=== PATIENT | female | born 1945 | race Caucasian/White ===

== ENCOUNTER 2019-08-29 15:22 | Inpatient (IN) ==
[2019-08-29] MEDS ORDERED: ZOFRAN IV ONE (15:56)
[2019-08-29] MEDS ORDERED: MORPHINE IV ONE (15:56)
--- NOTE | 2019-08-29 16:09 | PROVIDER DOCUMENTATION ---
HPI-Abdominal Pain/GI Problem - General Chief Complaint: General Adult Stated Complaint: NOT FEELING WELL Time Seen by Provider: 08/29/19 15:48 Source: patient Allergies/Adverse Reactions: Patient Allergies Allergy/AdvReac Type Severity Reaction Status Date / Time No Known Allergies Allergy Verified 08/29/19 15:54 Home Medications: Home Medication List Medication Instructions Recorded Confirmed Last Taken Type Biotin 5,000 mcg PO QAM 08/25/19 08/29/19 08/25/19 08:00 History Cetirizine [Zyrtec] 10 mg PO QHS 08/25/19 08/29/19 08/25/19 21:00 History Citalopram [Celexa] 20 mg PO QHS 08/25/19 08/29/19 08/25/19 21:00 History Famotidine 40 mg PO QHS 08/25/19 08/29/19 08/25/19 21:00 History Metoclopramide [Reglan] 10 mg PO DIRECTED 08/25/19 08/29/19 08/25/19 21:00 History Multivit/Iron/Folic Acid/Hb179 1 ea PO QAM 08/25/19 08/29/19 Unknown History [Womens Multivit Hi Potency Tab] Pantoprazole [Protonix] 40 mg PO BID 08/25/19 08/29/19 08/25/19 21:00 History Temazepam 15 mg PO QHS 08/25/19 08/29/19 08/25/19 21:00 History Zinc 50 mg PO BID 08/25/19 08/29/19 Unknown History Calcium Citrate/Vitamin D 1 tab PO BID 08/29/19 08/29/19 Unknown History [Citracal + D] Irbesartan 1 tab PO DAILY 08/29/19 08/29/19 Unknown History Lipase/Protease/Amylase [Creon Dr 2 cap PO TID 08/29/19 08/29/19 Unknown History 12,000 Units Capsule] Loperamide [Imodium] 1 cap PO DIRECTED PRN 08/29/19 08/29/19 Unknown History Ondansetron HCl [Zofran] 1 - 2 tab PO DIRECTED 08/29/19 08/29/19 Unknown History Promethazine [Phenergan] 1 tab PO DIRECTED PRN 08/29/19 08/29/19 Unknown History Vitamin B Complex 1 tab PO DAILY 08/29/19 08/29/19 Unknown History - History of Present Illness-ABD Nature of Presenting Problems: 73 yof with pancreatic cancer being treated with chemotherapy (Dr. Gunter), s/p ERCP(Dr. Whittington) on Saturday presents with abdominal pain, n/v presents at the advice of television agent GI. She denies fever, chills, CP, SOB. Pain Radiation: reports: epigastric Quality of Pain: reports: aching, cramping Severity in ED: reports: severe Onset/Duration: reports: 2 days ago Timing: reports: still present Activities at Onset: reports: none Exposure to sick contacts?: No Modifying Factors: improves with: nothing Associated Symptoms: reports: nausea, vomiting Last BM: 2 days ago Dark Stools Present?: reports: none noticed Rectal Bleeding: reports: none Rectal Pain: reports: none Emesis Description: reports: clear (yellow) Bruising or Bleeding Gums?: No Similar Symptoms Previously?: No Recently seen or treated by another doctor?: Yes (GI for ERCP) Review of Systems - Adult - REVIEW OF SYSTEMS - ADULT Constitutional: reports: no symptoms reported. denies: see HPI, chills, fever, fatique, night sweats, weight gain, weight loss, other Eyes: reports: no symptoms reported. denies: see HPI, discharge, dry eyes, decreased vision, blurred vision, double vision, eye pain, redness, other Ears, Nose, Mouth & Throat: reports: no symptoms reported. denies: see HPI, ear discharge, ear pain, hearing loss, tinnitus, epistaxis, sinus problem, nose pain, loose teeth, mouth/dental pain, mouth swelling, hoarseness, throat pain, throat swelling, other Cardiovascular: reports: no symptoms reported. denies: see HPI, chest pain, edema, heart murmur, irregular heart rate, orthopnea, palpitations, poor circulation, PND, syncope, other Respiratory: reports: no symptoms reported. denies: see HPI, chronic cough, cough, dyspnea on exertion, excessive sputum production, hemoptysis, pleurisy, shortness of breath, wheezing, other Gastrointestinal: reports: see HPI, abdominal pain, diarrhea, nausea, vomiting Genitourinary: reports: no symptoms reported. denies: see HPI, dysuria, discharge, frequency, flank pain, frequent UTI's, hematuria, hesitency, incontinence, urinary retention, urgency, other Musculoskeletal: reports: no symptoms reported. denies: see HPI, bone pain, back pain, frequent leg cramps, joint pain, joint swelling, muscle aches, muscle weakness, neck pain, other Integumentary: reports: no symptoms reported. denies: see HPI, hives, hair loss, itching, mole changes, nail changes, rash, skin sores/ulcer, skin thickening, other Neurological: reports: no symptoms reported. denies: see HPI, ataxia, di zziness/vertigo, headache/migraines, loss of balance, numbness, paresthesia, seizure, slurred speech, syncope, tremors, other Psychiatric: reports: no symptoms reported. denies: see HPI, anxiety, anti- depressant use, alcohol/drug dependence, depression, emotional problems, insomnia, panic attacks, suicidal thoughts, other Endocrine: reports: no symptoms reported. denies: see HPI, change in skin pigment, excessive sweating, goiter, cold intolerance, heat intolerance, increased hunger, increased thirst, polyuria, other Hematologic/Lymphatic: reports: no symptoms reported. denies: see HPI, blood clots, easy bruising, low blood count, lymphedema, prolonged bleeding, swollen lymph nodes, transfusions, other Allergic/Immunologic: reports: no symptoms reported. denies: see HPI, allergic reactions, allergic rhinitis, asthma, eczema, food allergy, frequent infections, hay fever, hives, positive PPD, urticaria, other Past History - Adult - PAST MEDICAL HISTORY-ADULT Review of Records: reports: Nursing Assessment Review, Social history reviewed & non-contributory. Physical Exam-General - PHYSICAL EXAM-ADULT Initial Vital Signs Reviewed: Yes - CONSTITUTIONAL General Appearance: alert, mild distress (due to pain) - EYES Eyes: PERRL/EOMI, pink conjunctivae - HEAD, EARS, NOSE, MOUTH & THROAT HENMT: normocephalic/atraumatic, moist mucous membranes, normal ENT inspection - NECK Neck: non-tender, full range of motion, supple - RESPIRATORY Respiratory: chest non-tender, lungs clear, normal breath sounds, no pleuratic chest pain, no respiratory distress, no accessory muscle use - CARDIOVASCULAR Cardiovascular: normal peripheral pulses, regular rate, rhythm, no edema, no gallop, no JVD, no murmur - GASTROINTESTINAL (ABDOMEN) Abdominal Exam: normal bowel sounds, soft, tenderness (epgastric) - LYMPHATIC Lymphatic: no adenopathy - MUSCULOSKELETAL Back Exam: normal inspection, no CVA tenderness, no vertebral tenderness Extremity: normal range of motion, non-tender Peripheral Pulses: radial (R): 2+, radial (L): 2+ - SKIN Integumentary: normal turgor, warm/dry. negative: normal color (pale) - NEUROLOGIC Neurologic: grossly normal - PSYCHIATRIC Psych/Mental Status: normal mood/affect, oriented x 3 Progress - PLAN OF CARE/RESULTS Progress/Plan/Lab Results: Vital Signs - 8 hr 08/29/19 15:27 Temperature 97.6 F Pulse Rate 77 Respiratory Rate 18 Blood Pressure 162/82 O2 Sat by Pulse Oximetry 96 Orders Category Date Time Status Misc. NRSG Communication Order DIRECTED Care 08/29/19 15:55 Active AMYLASE [CHEM] Stat Lab 08/29/19 15:55 Ordered CBC WITH ELECTRONIC DIFF [HEME] Stat Lab 08/29/19 15:55 Uncollected COMPREHENSIVE METABOLIC PANEL [CHEM] Stat Lab 08/29/19 15:55 Uncollected LIPASE [CHEM] Stat Lab 08/29/19 15:55 Uncollected UA NIMS W/REFLEX CULT [URINALYSIS] Stat Lab 08/29/19 15:55 Uncollected Morphine Med 08/29/19 15:56 Discontinued 2 mg IV NOW ONE Ondansetron [Zofran] Med 08/29/19 15:56 Discontinued 4 mg IV NOW ONE Result Diagrams: 08/29/19 16:10 08/29/19 16:10 - CT/MRI 1 CT Study: Abdomen, Pelvis Impression: See EMR Report (EXAM: CT ABD/PELVIS W/IV CONT ONLY HISTORY: Pain TECHNIQUE: CT abdomen and pelvis with intravenous contrast, but without oral contrast. COMPARISON: 06/03/2019 FINDINGS: There is a common bile duct stent on the current exam. Mild pneumobilia in the left hepatic lobe. Interval decrease in the size of the hepatic masses. No splenomegaly. No increase in the size of the mass in the pancreatic head/uncinate process. The pancreatic duct is dilated on the current exam. Normal adrenal glands and kidneys. No hydronephrosis. Normal aorta. There is narrowing of the mid to distal superior mesenteric artery. The stomach and duodenum aren't distended. This is similar to the prior exam. There is stool throughout the colon. No bowel obstruction. No abscess. Urinary bladder is moderately distended and normal. Normal uterus. Trace fluid in the pelvis. IMPRESSION: 1.No enlargement of the pancreatic mass although the pancreatic duct is dilated on the current exam 2.Interval decrease in the size of the hepatic masses 3.Distended duodenum similar to the prior exam 4.Constipation 5.Trace fluid in the pelvis on the current exam This exam was performed using automated exposure control, adjustment of mA or kV according to patient size, and/or use of iterative reconstruction technique. Electronically signed by Memo Sen 08/29/2019 5:43 PM 08/29/19 1743 I nterpreting Physician: Memo Sen MD Dictated Date/Time: 08/29/19 173 cc: Paradise Bro; Koko Peck MD) Comparison with other Films: changes noted - CONSULTS/PCP/HOSPITALIST Notification #1 *Consult/PCP/Hospitalist*: DR. ARAUJO Time Discussed: 18:12 Consult Disposition: Admit (WILL SEE IN [facility] ER) Departure - Departure Date of Disposition Decision: 08/29/19 Time of Disposition Decision: 18:12 DIAGNOSIS: Nausea & vomiting, Abdominal pain, Pancreatic cancer, Hypokalemia Disposition: ADMITTED INPATIENT 09 Certified Medical Emergency: Emergent Condition: Stable Referrals and Follow-Ups: Koko Peck MD [Primary Care Provider] - - Critical Care Note This patient required my direct & personal management of CC.: No Attestation - Physician/ VIVEK Attestation Patient care was provided by Advanced Practice Provider:: Yes Advanced Practice Provider:: Paradise Bro Advanced Practice Provider documentation review:: The Mid-level provider documentation, treatment plan and medical decision making was reviewed by the physician who agrees with all treatment and medical decision making by the P. The physician spent face to face time with patient:: No Advanced Practice Provider documentation review:: Supervising physician onsite and consulted in the evaluation and care of this patient. The physician did not have a face to face encounter with the patient.
[2019-08-29 16:28] LABS: BASO# 0.01 X1000 (0.0-0.2); BASO% 0.2 % (0.0-0.8); EOS# 0.11 X1000 (0.0-0.7); EOS% 1.8 % (0.0-10.0); HEMATOCRIT 29.8 % (37.0-47.0); HEMOGLOBIN 9.5 g/dL (12.0-16.0); IMM GRAN# 0.02 X1000 (0.0-0.04); IMM GRAN% 0.3 % (0.0-0.5); LYMPH# 0.54 X1000 (1.2-3.4); MCH 31.3 PG (27-31); MCHC 31.9 g/dL (33-37); MONO# 1.17 X1000 (0.11-0.59); MONO% 19.4 % (1.7-9.3); MPV 9.2 FL (7.4-10.4); NEUT# 4.18 X1000 (1.4-6.5); NEUT% 69.3 % (42.2-75.2); PLT 154 X1000 (130-400); RBC 3.04 XMIL (4.2-5.4); RDW 17.4 % (11.5-14.5); WBC 6.03 X1000 (4.8-10.8)
[2019-08-29] MEDS ORDERED: NS 1,000 ML IV ONE ×2 (16:34→18:18)
[2019-08-29 16:47] LABS: AGAP 13; ALBUMIN 3.6 g/dL (3.5-5.0); ALKALINE PHOSPHATASE 681 U/L (32-104); BUN 16 mg/dL (8-22); CALCIUM 8.7 mg/dL (8.8-10.2); CHLORIDE 94 mmol/L (98-107); COSMO 269; CREATININE 0.6 mg/dL (0.5-0.9); ESTIMATED GFR > 60; GLUCOSE 121 mg/dL (70-104); GOT 179 U/L (10-30); GPT 316 U/L (10-36); LIPASE 196 U/L (13-60); POTASSIUM 3.2 mmol/L (3.5-5.1); SODIUM 133 mmol/L (136-145); TCO2 26 mmol/L (25-35); TOTAL PROTEIN 6.5 g/dL (6.3-8.3)
--- NOTE | 2019-08-29 17:46 | Diag Imaging Result Doc PS360 ---
EXAM: CT ABD/PELVIS W/IV CONT ONLY HISTORY: Pain TECHNIQUE: CT abdomen and pelvis with intravenous contrast, but without oral contrast. COMPARISON: 06/03/2019 FINDINGS: There is a common bile duct stent on the current exam. Mild pneumobilia in the left hepatic lobe. Interval decrease in the size of the hepatic masses. No splenomegaly. No increase in the size of the mass in the pancreatic head/uncinate process. The pancreatic duct is dilated on the current exam. Normal adrenal glands and kidneys. No hydronephrosis. Normal aorta. There is narrowing of the mid to distal superior mesenteric artery. The stomach and duodenum aren't distended. This is similar to the prior exam. There is stool throughout the colon. No bowel obstruction. No abscess. Urinary bladder is moderately distended and normal. Normal uterus. Trace fluid in the pelvis. IMPRESSION: 1.No enlargement of the pancreatic mass although the pancreatic duct is dilated on the current exam 2.Interval decrease in the size of the hepatic masses 3.Distended duodenum similar to the prior exam 4.Constipation 5.Trace fluid in the pelvis on the current exam This exam was performed using automated exposure control, adjustment of mA or kV according to patient size, and/or use of iterative reconstruction technique. Electronically signed by Memo Sen 08/29/2019 5:43 PM
[2019-08-29 18:10] LABS: URINE SOURCE CLEAN CATCH
[2019-08-29] MEDS: MORPHINE IV PRN ×2 (18:33→22:12)
[2019-08-29 18:38] LABS: BILIRUBIN URINE NEGATIVE (NEGATIVE); BLOOD URINE NEGATIVE (NEGATIVE); COLOR YELLOW; GLUCOSE URINE NEGATIVE (NEGATIVE); KETONE URINE NEGATIVE (NEGATIVE); LEUKOCYTES URINE NEGATIVE (NEGATIVE); NITRITE URINE NEGATIVE (NEGATIVE); PROTEIN URINE NEGATIVE (NEGATIVE); SP GRAVITY URINE 1.019; TURBIDITY URINE CLEAR (CLEAR); UROBILINOGEN URINE NORMAL (NORMAL)
[2019-08-29 18:58] LABS: UR EPITHELIAL CELLS <10 /HPF (<10); URINE BACTERIA NEGATIVE /HPF; URINE RBC <10 /HPF (<10); URINE WBC <10 /HPF (<10); URINE YEAST NONE SEEN
[2019-08-29 18:59] LABS: URINE CASTS NONE SEEN; URINE CRYSTALS NONE SEEN
[2019-08-29] MEDS ORDERED: DILAUDID IV PRN (19:27)
--- NOTE | 2019-08-29 20:45 | HISTORY AND PHYSICAL ---
CHIEF COMPLAINT: Upper abdominal pain, nausea, not eating, since metal stent was placed by Dr. Gregory on Saturday. HISTORY OF PRESENT ILLNESS: She is a 73-year-old pleasant white female patient of Dr. Peck who has been diagnosed with metastatic pancreatic cancer since last year. The patient has a port on the right side. The patient is receiving chemotherapy by Dr. Gunter. Last chemo was 10 days ago, approximately. She has persistently elevated LFTs, and as a result Dr. Brar placed a metal stent last Saturday. The patient was discharged as an outpatient. Since then, she has pain that is increasing in the abdomen and nausea, not eating anything. Apparently, she called Dr. Gunter and Dr. Greco. The patient was advised to go to the emergency room. Since the patient has a history of abdominal pain, the patient was transferred to [facility] for a better CT scan. The patient was evaluated by the nurse practitioner, and she was dehydrated, hypokalemic, with an elevated lipase. Basically, the patient was admitted to the hospital for possible pancreatitis. She needs some pain management, IV fluids. She appears to be running a low-grade fever. Need to closely watch for ascending cholangitis. CT scan of the abdomen and pelvis showed no enlargement of the pancreatic mass, although the pancreatic duct is dilated. Interval decrease in the size of hepatic masses, distended duodenum, constipation. A common bile duct stent was placed. As a result, a hospital admission was warranted. PAST MEDICAL HISTORY: Allergic rhinitis, acid reflux disease, reactive depression, metastatic pancreatic cancer, hypertension. PAST SURGICAL HISTORY: Thyroidectomy for thyroid nodule, laparoscopic surgery for endometriosis, Port-A-Cath on the right side of the chest. MEDICATIONS.: 1. Cetirizine 10 mg at bedtime. 2. Famotidine 40 mg daily. 3. Reglan as directed. 4. Protonix 40 b.i.d. 5. Zinc 50 mg b.i.d. 6. Celexa 20 mg at bedtime. 7. Temazepam 15 at bedtime. 8. Creon capsule 2 tablets t.i.d. 9. Zofran and promethazine as needed, 10. Avapro 150 daily. ALLERGIES: Not known. SOCIAL HISTORY: She is retired, for 53 years, adopted children. Lives on [address]. No smoking. No alcohol. FAMILY HISTORY: Mother had ovarian cancer, of a cerebral hemorrhage. Father had prostate cancer. Siblings had ALS. REVIEW OF SYSTEMS: HEENT: No headache, no vision problem. No earache. No sore throat. Neck: Thyroid surgery. No neck pain, no goiter, no lymphadenopathy. Cardiopulmonary: No chest pain, shortness of breath, PND, orthopnea. GI: Upper abdominal pain, nausea, diarrhea since Saturday. Extremities: No swelling of legs. No joint pain. Neurologic: No focal symptoms or weakness. PHYSICAL EXAMINATION: VITAL SIGNS: Temperature is 98, pulse 60, blood pressure 117/85. HEENT: Atraumatic, normocephalic. Pupils equal and react to light. Slightly dry, pale. NECK: Supple. No lymphadenopathy. No goiter. CHEST: Bilateral air entry. Port present on the right side of the chest. CARDIOVASCULAR: Heart sounds are regular. No murmur. ABDOMEN: Belly is soft. No scars noted. Slightly tender, but no signs of guarding or rigidity. No peripheral edema or cyanosis. NEUROLOGIC: No obvious neurological deficits. INVESTIGATIONS: White cell count 6, hematocrit 29.8, platelets 154. Sodium 133, potassium 3.2, and glucose 121. Bilirubin 0.6. AST, ALT, alkaline phosphatase were high. They were normal on 05/28/2019. Urinalysis is clear. CT scan of the abdomen and pelvis: Interval decrease in the size of hepatic mass, constipation and common bile duct stent on the current exam. Mild pneumobilia in the left hepatic lobe. There is stool throughout the colon. ASSESSMENT AND PLAN: A 73-year-old white female who has a known history of stage IV pancreatic cancer, under treatment by Dr. Gunter. Recently had a metal stent. Since then has abdominal pain, elevated liver function tests, and possible pancreatitis. 1. Rule out ascending cholangitis, impending dehydration. IV fluids with D5 half normal saline with 40 of KCl 80 mL/hour. 2. Zofran for nausea and Dilaudid for pain. Prophylactic antibiotics with Zosyn. 3. Constipation. We will give stool softeners. We will check a KUB in the morning as well as liver function tests. 4. Deep venous thrombosis and gastrointestinal prophylaxis with Lovenox and Protonix. 5. Reconcile home medications and consult with Dr. Gunter and Dr. Maykel. The patient will be transferred from the [facility] to [facility] [place]. The patient was seen in the emergency room at [facility]. Discussed the plan of care with the family. cc: Nir Rodriguez MD
[2019-08-29] MEDS ORDERED: SODIUM CHLORIDE 0.9% INJ SCH (21:14)
[2019-08-29] MEDS ORDERED: POTASSIUM CHLORIDE 40 MEQ in D5 NS 1,000 ML IV ONE (21:14)
[2019-08-29] MEDS: PROTONIX IV SCH (22:11)
[2019-08-29] MEDS: ZOSYN 3.375 GM in NS 50 ML IV SCH (22:12)
[2019-08-29] MEDS: RESTORIL PO SCH (22:12)
[2019-08-29] MEDS: ZOFRAN IV PRN (22:12)
[2019-08-29] MEDS: LOVENOX SUBQ SCH (22:13)
[2019-08-30] MEDS: MORPHINE IV PRN ×5 (03:36→18:32)
[2019-08-30] MEDS: ZOFRAN IV PRN ×5 (03:36→18:33)
[2019-08-30] MEDS: ZOSYN 3.375 GM in NS 50 ML IV SCH ×5 (03:37→22:21)
[2019-08-30 08:07] LABS: EOS# 0.14 X1000 (0.0-0.7); HEMATOCRIT 30.2 % (37.0-47.0); HEMOGLOBIN 9.5 g/dL (12.0-16.0); IMM GRAN# 0.02 X1000 (0.0-0.04); IMM GRAN% 0.4 % (0.0-0.5); LYMPH# 0.71 X1000 (1.2-3.4); MCHC 31.5 g/dL (33-37); MCV 98.7 FL (81-99); MONO# 0.74 X1000 (0.11-0.59); MONO% 15.6 % (1.7-9.3); MPV 9.6 FL (7.4-10.4); NEUT# 3.13 X1000 (1.4-6.5); PLT 155 X1000 (130-400); RBC 3.06 XMIL (4.2-5.4); RDW 17.7 % (11.5-14.5); WBC 4.74 X1000 (4.8-10.8)
[2019-08-30 08:54] LABS: AGAP 8; ALB/GLOB RATIO 1.1; ALBUMIN 3.1 g/dL (3.5-5.0); ALKALINE PHOSPHATASE 724 U/L (32-104); BUN 8 mg/dL (8-22); CALCIUM 8.4 mg/dL (8.8-10.2); CHLORIDE 99 mmol/L (98-107); COSMO 273; CREATININE 0.6 mg/dL (0.5-0.9); ESTIMATED GFR > 60; GLUCOSE 116 mg/dL (70-104); GOT 266 U/L (10-30); GPT 372 U/L (10-36); POTASSIUM 3.2 mmol/L (3.5-5.1); SODIUM 137 mmol/L (136-145); TCO2 30 mmol/L (25-35); TOTAL BILIRUBIN 0.67 mg/dL (0.20-1.00); TOTAL PROTEIN 5.8 g/dL (6.3-8.3)
[2019-08-30 09:13] LABS: AMYLASE 61 U/L (20-200); LIPASE 119 U/L (13-60)
[2019-08-30] MEDS ORDERED: RELISTOR SUBQ ONE (12:10)
[2019-08-30] MEDS ORDERED: NS 500 ML ONE (12:38)
[2019-08-30] MEDS: POTASSIUM CHLORIDE 60 MEQ in NS 500 ML IV SCH (12:41)
--- NOTE | 2019-08-30 15:18 | PROGRESS NOTE ---
DATE: 08/30/2019 SUBJECTIVE: A 73-year-old white female admitted since last night with upper abdominal pain going to the back. The patient had Dilaudid last night, and she slept well until 7 o'clock in the morning. The pain returned; upper abdominal pain going to the back with nausea. She was also constipated on the CT. REVIEW OF SYSTEMS: Abdominal pain, nausea. PHYSICAL EXAMINATION: Vital signs: Temperature is 98.4 degrees, pulse is 65, blood pressure is 133/56, room air 97%. HEENT: No jaundice, slightly pale. Neck: Supple. Chest: Clear. Heart: Sounds are regular. Abdomen: Belly is soft. No signs of peritonitis. Hyperactive bowel sounds. Neurologic: No neurological deficits. INVESTIGATIONS: CBC: White cell count 4.7, hematocrit 30.2, platelets 155,000. Sodium 137, potassium 3.2, chloride 99, BUN 8, creatinine 0.6. Bilirubin is normal, but significant elevation of LFTs since the metal stent. Lipase is coming down. Amylase is normal. ASSESSMENT: 1. Metastatic pancreatic cancer 2. Constipation. 3. Dehydration with hyponatremia, hypokalemia. 4. Elevated liver function tests post metal stent by Dr. Brar and elevated lipase, possible pancreatitis. 5. Hypertension. PLAN OF CARE: 1. Continue IV fluids. 2. Replace the potassium. 3. Just popsicles and some MiraLAX for constipation. 4. Relistor to negate the effects of narcotics. 5. Follow up on KUB. 6. Continue IV antibiotics to prevent ascending cholangitis, since the patient has pneumobilia. 7. Deep vein thrombosis and gastrointestinal prophylaxis with Protonix and Lovenox. 8. Symptomatic treatment for nausea with Zofran and morphine for pain. 9. Repeat the labs in the morning. Follow up on KUB. Plan of care discussed with the patient and at bedside. We will consult Dr. Brar in the morning as well as Dr. Gunter and Dr. Peck who are going to follow up. LEVEL OF DOCUMENTATION: 25 minutes. cc: Nir Rodriguez MD
--- NOTE | 2019-08-30 19:01 | Diag Imaging Result Doc PS360 ---
EXAM: ABDOMEN FLAT/UPRIGHT 08/30/2019 HISTORY: pain TECHNIQUE: Flat and upright abdomen COMMENT: There is a large amount of stool in the right colon. There is no evidence of small bowel obstruction. There is contrast in the gallbladder which was not present on 05/28/2019. There is a Wallstent apparently in the common bile duct. IMPRESSION: Constipation. Electronically signed by Vinay Clay 08/30/2019 6:59 PM
--- NOTE | 2019-08-30 19:02 | Diag Imaging Result Doc PS360 ---
EXAM: CHEST-2 VIEWS 08/30/2019 HISTORY: SOB TECHNIQUE: PA and lateral chest COMMENT: There are ill-defined opacities in the left lower lobe and in the costophrenic sulcus region of the right lower lobe which were not present on 05/28/2019. There is a Port-A-Cath on the right with its tip in the right innominate vein. IMPRESSION: Bibasilar bronchopneumonia particularly in the left lower lobe. Electronically signed by Vinay Clay 08/30/2019 6:59 PM
--- NOTE | 2019-08-30 20:43 | GASTROENTEROLOGY CONSULTATION ---
DATE: 08/30/2019 ATTENDING PHYSICIAN: Koko Peck MD PRIMARY ONCOLOGIST: Arpan Gunter MD PRIMARY RISK INTERN: Nehemias Brar MD REASON FOR CONSULTATION: Elevated liver enzymes, abdominal pain, nausea, history of pancreatic cancer. HISTORY OF PRESENT ILLNESS: Ms. Pulido is a 73-year-old female who was admitted with worsening abdominal pain in the epigastric region along with nausea, not eating for the last few days. The patient has a diagnosis of pancreatic cancer on 06/03/2019. She had an endoscopic ultrasound done at [facility] and Dr. Kolton Meyers. Post confirmation of the diagnosis, she was given 8 rounds of chemotherapy with Dr. Gunter. The last cycle was about 10 days ago. She was noted to have elevated liver enzymes. She was referred to Dr. Brar and ERCP with metal stent was placed on Saturday on 08/26/2019. Postoperatively patient had worsening abdominal pain and nausea and decreased p.o. intake and presented to the hospital. In the hospital, she had a CT scan which showed evidence of no enlargement of pancreatic mass. The pancreatic duct was dilated, interval decrease in the size of hepatic masses, distended duodenal and constipation was noted. The common bile duct stent was noted on the current exam and mild pneumobilia was on the left hepatic lobe. There was evidence of narrowing of the mid to distal superior mesenteric artery. There was evidence of stool throughout the colon. Gastroenterology was consulted for further management. PAST MEDICAL HISTORY: Metastatic pancreatic cancer, hypertension, acid reflux disease, reactive depression, allergic rhinitis, constipation. PAST SURGICAL HISTORY: Thyroidectomy for thyroid nodule, laparoscopic surgery for endometriosis, Port-A-Cath placement, endoscopic ultrasound in May 2019, ERCP with metal stent placement on 08/26/[address] Brar. ALLERGIES: No known drug allergies. SOCIAL HISTORY: She is retired. She is for 53 years. Her present at bedside. She lives on [facility]. No history of smoking or alcohol. FAMILY HISTORY: Mother had ovarian cancer. of cerebral hemorrhage. Father had prostate cancer. Siblings had a ALS. REVIEW OF SYSTEMS: Denies any current fevers, rigors, chills, chest pain, shortness of breath. Denies any vomiting blood. Does complain of persistent nausea and epigastric pain. Does complain of some discomfort at the Port-A-Cath site. Denies any neurologic complaints. MEDICATIONS IN THE HOSPITAL: Include: Restoril, Lovenox, potassium chloride repletion, morphine 2 mg IV q.2 hours, Zofran 4 mg IV every 4 hours and Protonix 40 mg IV once daily, MiraLAX 17 once daily which we will increase to twice daily as the patient has stool throughout the colon, Zosyn 3.375 g IV q.6 hours, dextrose 5%, normal saline 80 mL/h. She was given Relistor 12 mg subcu once. She is currently on telemetry. PHYSICAL EXAMINATION: Vital signs: Temperature 98.4 degrees, pulse of 61 respiratory 12, blood pressure 130/56, saturating 97% on room air. Body weight of 137 pounds 7 ounces. BMI 22 kg. General: Moderately nourished, lying in bed, in no acute distress. HEENT: Pale conjunctiva. No icterus. Pupils equal, reactive to light. Neck: Supple. Abdomen: Discomfort in the epigastrium. No rebound or guarding. Extremities: No cyanosis, clubbing. Neurologic: Alert, awake, oriented. Chest exam: She had a Port-A-Cath on the right upper chest area. No redness noted at the Port-A-Cath site. LABORATORIES: Her hemoglobin and hematocrit is 9.5 and 30.2. White count of 4.74, platelet count of 155,000. Sodium 139, potassium 3.2, chloride 99, bicarb 30, anion of 8, BUN of 8, creatinine 0.6, glucose of 116, calcium is 8.4, bilirubin 0.67. AST 266, ALT 372, alkaline phosphatase is 724, total protein is 5.8, albumin of 3.1, lipase of 119. Urinalysis is negative. IMAGING: CT scan as described in HPI. IMPRESSION AND PLAN: 1. Stage IV pancreatic cancer with liver metastases. Under treatment by Dr. Gunter. 2. Elevated liver enzymes. 3. Status post endoscopic retrograde cholangiopancreatography with metal stent placement on 08/26/[address] Brar. 4. Nausea. 5. Constipation. 6. Soreness at the Port-a cath site RECOMMENDATIONS: We will continue with IV fluids. We will do blood culture x2 to evaluate for any kind of sepsis. She will continue on Zofran IV every 4 hours as needed. She will continue on deep venous thrombosis prophylaxis with Lovenox. She is on potassium repletion per the primary team. She will continue on gastrointestinal prophylaxis with Protonix. We will keep her on IV Zosyn for now. We will consult Dr. Gunter to evaluate for any evidence of infection related to the Port-A-Cath. She will continue IV pain control with morphine. We will increase the MiraLAX twice daily. The above plan of care was discussed with the patient and the family at bedside. All questions answered. We will follow along. Dr. Brar will be back tomorrow to resume care. cc: MD Nir Grande MD Stephen Harbin Naveen T. Lobo, MD MTDD
[2019-08-30] MEDS: MIRALAX PO SCH (21:46)
[2019-08-30] MEDS: RESTORIL PO SCH (21:47)
[2019-08-30] MEDS: PROTONIX IV SCH (21:47)
[2019-08-30] MEDS: LOVENOX SUBQ SCH (21:50)
[2019-08-31] MEDS: POTASSIUM CHLORIDE 60 MEQ in NS 500 ML IV SCH (00:45)
[2019-08-31] MEDS: MORPHINE IV PRN (03:14)
[2019-08-31] MEDS: ZOFRAN IV PRN (03:14)
[2019-08-31] MEDS: ZOSYN 3.375 GM in NS 50 ML IV SCH ×4 (03:15→20:56)
[2019-08-31 08:03] LABS: BASO# 0.01 X1000 (0.0-0.2); BASO% 0.3 % (0.0-0.8); EOS# 0.25 X1000 (0.0-0.7); EOS% 6.5 % (0.0-10.0); HEMATOCRIT 32.6 % (37.0-47.0); HEMOGLOBIN 10.1 g/dL (12.0-16.0); IMM GRAN# 0.03 X1000 (0.0-0.04); IMM GRAN% 0.8 % (0.0-0.5); LYMPH# 0.63 X1000 (1.2-3.4); LYMPH% 16.5 % (20.5-51.1); MONO# 0.64 X1000 (0.11-0.59); MONO% 16.8 % (1.7-9.3); MPV 9.3 FL (7.4-10.4); NEUT# 2.26 X1000 (1.4-6.5); NEUT% 59.1 % (42.2-75.2); PLT 199 X1000 (130-400); RBC 3.26 XMIL (4.2-5.4); RDW 18.1 % (11.5-14.5); WBC 3.82 X1000 (4.8-10.8)
[2019-08-31] MEDS: MIRALAX PO SCH ×2 (08:08→20:56)
[2019-08-31 08:52] LABS: AGAP 12; ALB/GLOB RATIO 1.2; ALBUMIN 3.2 g/dL (3.5-5.0); ALKALINE PHOSPHATASE 891 U/L (32-104); BUN 6 mg/dL (8-22); CALCIUM 8.5 mg/dL (8.8-10.2); CHLORIDE 98 mmol/L (98-107); COSMO 267; CREATININE 0.7 mg/dL (0.5-0.9); ESTIMATED GFR > 60; GLUCOSE 88 mg/dL (70-104); GOT 278 U/L (10-30); GPT 417 U/L (10-36); POTASSIUM 4.7 mmol/L (3.5-5.1); SODIUM 135 mmol/L (136-145); TCO2 25 mmol/L (25-35); TOTAL BILIRUBIN 1.26 mg/dL (0.20-1.00); TOTAL PROTEIN 5.9 g/dL (6.3-8.3)
[2019-08-31] MEDS ORDERED: MIRALAX PO SCH (09:00)
[2019-08-31] MEDS ORDERED: NS 1,000 ML ONE (12:45)
[2019-08-31] MEDS: POTASSIUM CHLORIDE 10 MEQ in NS 1,000 ML IV SCH (12:51)
[2019-08-31] MEDS: REGLAN PO SCH (16:33)
--- NOTE | 2019-08-31 17:24 | HEMO/ONC CONSULTATION ---
DATE: 08/31/2019 REASON FOR CONSULTATION: This is a known patient of ours for the treatment of metastatic pancreatic adenocarcinoma. HISTORY OF PRESENT ILLNESS: Ms. Pulido is a 73-year-old female who is being followed in our office for metastatic pancreatic cancer. The patient called our on-call service of his weekend to tell Dr. Gunter that she has had a significant amount of abdominal pain for several days since having a stent placed in her common bile duct by Dr. Brar. She is having increasing nausea, anorexia, and abdominal pain. The patient was sent to the [facility] ER for a CT scan which showed possible pancreatitis. She was found to be dehydrated, hypokalemic, with an elevated lipase. She was admitted for treatment and further evaluation. We began treating the patient in May of 2019 with Gemzar and Abraxane for metastatic pancreatic adenocarcinoma. She has been tolerating her treatment rather well. Her last therapy was on 08/20/2019. It was noted in the office at her last visit that her liver enzymes were significantly elevated. We referred her to Dr. Brar. The patient's latest CA-19-9 is 1,212. PAST MEDICAL HISTORY: Allergic rhinitis, acid reflux disease, reactive depression, metastatic pancreatic cancer, hypertension. PAST SURGICAL HISTORY: Thyroidectomy for thyroid nodule, laparoscopic surgery for endometriosis, Port-A-Cath on the right side. MEDICATIONS: 1. Cetirizine. 2. Famotidine. 3. Reglan. 4. Protonix. 5. Zinc. 6. Celexa. 7. Temazepam. 8. Creon. 9. Zofran and promethazine as needed. 10. Avapro. ALLERGIES: No known drug allergies. SOCIAL HISTORY: She denies smoking, alcohol, or illicit drug use. REVIEW OF SYSTEMS: Today the patient continues to complain of epigastric to right upper abdominal pain and nausea. VITAL SIGNS: Temperature 98.1 degrees, pulse rate 61, respiratory rate 18, blood pressure 151/71, O2 saturation 99% on room air. She is in 8/10 abdominal pain. PHYSICAL EXAMINATION: General: The patient is resting in bed, in no acute distress. HEENT: Sclerae anicteric. PERRLA. Oral mucosa is normal. Cardiovascular: S1, S2 heard. Heart rate and rhythm regular. Respiratory: Chest is clear to auscultation. Normal respiratory effort. Gastrointestinal: Abdomen is soft. Tender to the right upper quadrant and epigastric area. Nondistended. Extremities: No lower extremity edema noted. Neurological: Alert and oriented x3. No focal motor deficits noted. LABORATORY: WBC 3.82, hemoglobin 10.1, hematocrit 32.6, platelet count 199,000. Sodium 135, calcium 8.5, total bilirubin 1.26, AST 278, ALT 417, alkaline phosphatase 891. RADIOLOGY: Chest x-ray: Bibasilar bronchopneumonia, particularly in the left lower lobe. Abdominal x-ray shows constipation. Abdominal and pelvis CT: 1. No enlargement of the pancreatic mass, although the pancreatic duct is dilated on current exam. 2. Interval decrease in the size of hepatic masses. 3. Distended duodenum similar to that of prior exam. 4. Constipation. 5. Trace fluid in the pelvis on the current exam. ASSESSMENT: 1. Stage IV pancreatic cancer with liver metastasis, currently under treatment with Gemzar and Abraxane, last treatment 08/20/2019. Treatment on hold while patient is hospitalized. 2. Elevated liver enzymes. 3. Status post endoscopic retrograde cholangiopancreatography with metal stent placement on 08/26/[address] Brar. 4. Nausea. 5. Constipation. 6. Abdominal pain. PLAN: We agree with Dr. Greco's assessment. We continue to await Dr. Brar's assessment. The patient should use MiraLAX for constipation. Continue to treat the patient per medical management. We will continue to follow. Dictated by DIMITRIS Ballard for Arpan Gunter MD As above. Patient feeling better today. Appreciate Dr. Whittington's recomendations. Continue antibiotics for suspected cholangitis. Liver mets are improving. Arpan Gunter MD cc: MD Nir Hernández MD [facility]
--- NOTE | 2019-08-31 18:54 | PROGRESS NOTE ---
DATE: 08/31/2019 SUBJECTIVE: The patient seen this morning and again this evening. She has had some improvement during the day with her pain, but she has not eaten anything. She has been able to tolerate some clear liquids for lunch and supper as ordered by Dr. Brar. She did have a small BM with some solid components. The pain had been severe right subscapular. OBJECTIVE: Vital signs: T-max 99 degrees, pulse 61, respirations 18, blood pressure 151/71. CV: RRR without murmur. Lungs: Clear. Abdomen: Soft. Active bowel sounds. No pinpoint tenderness. Extremities: No calf tenderness, cords, or edema. Neurologic: Cranial nerves 2- 12 are intact. Nonfocal. LABORATORY DATA: Shows white count 3.82, hemoglobin 10.1, platelets 199,000. LFTs remain elevated, maybe slightly worse than yesterday and the day before. Potassium is up now to 4.7, sodium 135, BUN 6, creatinine 0.7. Urinalysis negative. Blood cultures x2 remain negative. Chest x-ray reveals some possible ill-defined opacities at the bases, rule out pneumonia per x- ray, that was yesterday. Flat and upright of the abdomen reveals stent in the common bile duct, constipation. ASSESSMENT: 1. Metastatic pancreatic cancer with metastasis to the liver, improved on CT scan. 2. Common bile duct stone placement via endoscopic retrograde cholangiopancreatography within the past week per Dr. Brar. 3. Elevated liver function tests. 4. Hypokalemia, improved with repletion. 5. Dehydration, improved. 6. Malnutrition. 7. Hypertension. PLAN: Patient currently off of her Celexa and Avapro. We may resume those tomorrow if she does well. I am going to try to advance her up to a soft diet tomorrow if she continues to see some improvement in her pain. She is receiving some morphine as needed for pain currently. She is on IV PPI. She had some Relistor given per Dr. Rodriguez and she has had repletion of her potassium. She is on Zosyn. Clinically, I see no definite signs of pneumonia, but we will continue to watch her labs and x-rays. Continue prophylactic Lovenox, Reglan and Zofran as needed. Continue low- dose maintenance IV fluids. cc: MD Nir Carnes MD
[2019-08-31] MEDS: RESTORIL PO SCH (20:56)
[2019-08-31] MEDS: PROTONIX IV SCH (20:56)
[2019-08-31] MEDS: LOVENOX SUBQ SCH (20:57)
--- NOTE | 2019-08-31 22:16 | GASTROENTEROLOGY PROGRESS NOTE ---
DATE: 08/31/2019 The patient was seen earlier on rounds. At the time of my visit she was complaining of some nausea. Abdominal pain had improved slightly. She pointed to the epigastric and sternal area. At the time of my visit she was tolerating ice chips. She did not have a diet ordered. The patient had an ERCP and permanent stent placement on 08/26/[address] Brar. OBJECTIVE: Vital Signs: Temperature 98.1 degrees, pulse 61, respirations 18, blood pressure 151/71. General: Patient is awake and alert. No acute distress. Respiratory: Lung sounds essentially clear. Abdomen: Soft. Some mild tenderness in the epigastric area. Otherwise positive bowel sounds. LABORATORY: Hematology. WBC 3.82, hemoglobin 10.1, hematocrit 32.6, MCV 100.0, platelet 199,000. Chemistry. Sodium 135, potassium 4.7, chloride 98, CO2 25, BUN 6, creatinine 0.7, total bilirubin 1.26, AST 278, ALT 417, alkaline phosphatase 891, lipase on admission 08/29/2019 was 196, lipase yesterday was 119, amylase on 08/30/2019 was 61. ASSESSMENT AND PLAN: 1. History of pancreatic cancer currently following with Dr. Gunter for chemotherapy. She actually has a scheduled chemotherapy . 2. Elevated liver enzymes. Will repeat tomorrow. 3. Status post ERCP with permanent metal stent placed on 08/26/[address] Brar. 4. Nausea and abdominal pain slightly improved. 5. Ascending cholangitis. Continue antibiotics. 6. Continue current medications. Continue PPI. Will monitor liver function test and repeat labs tomorrow. Will allow clear liquids today. Further plans to be made according to her progress. She did have some constipation noted on CT scan. Continue current laxative, MiraLAX has been ordered. 7. Continue symptomatic treatment, supportive care. Continue antibiotics. Continue PPI. Further plans to be made according to her progress. We will see how she does with clear liquids. Repeat labs tomorrow. The patient was also seen by Dr. Brar. Dictated by DIMITRIS Harvey for Nehemias Brar MD cc: DIMITRIS Hargrove MD Jagan Reddy, MD
[2019-09-01] MEDS: MORPHINE IV PRN (00:50)
[2019-09-01] MEDS: ZOSYN 3.375 GM in NS 50 ML IV SCH ×3 (03:18→16:38)
[2019-09-01] MEDS: POTASSIUM CHLORIDE 10 MEQ in NS 1,000 ML IV SCH (05:15)
[2019-09-01] MEDS: REGLAN PO SCH ×3 (06:32→16:39)
[2019-09-01 08:46] LABS: BASO# 0.01 X1000 (0.0-0.2); BASO% 0.3 % (0.0-0.8); EOS# 0.29 X1000 (0.0-0.7); EOS% 8.1 % (0.0-10.0); HEMATOCRIT 30.4 % (37.0-47.0); HEMOGLOBIN 9.5 g/dL (12.0-16.0); IMM GRAN# 0.03 X1000 (0.0-0.04); IMM GRAN% 0.8 % (0.0-0.5); LYMPH# 0.63 X1000 (1.2-3.4); LYMPH% 17.6 % (20.5-51.1); MCHC 31.3 g/dL (33-37); MCV 99.3 FL (81-99); MONO# 0.72 X1000 (0.11-0.59); MONO% 20.1 % (1.7-9.3); MPV 9.4 FL (7.4-10.4); NEUT% 53.1 % (42.2-75.2); PLT 242 X1000 (130-400); RBC 3.06 XMIL (4.2-5.4); RDW 18.2 % (11.5-14.5); WBC 3.58 X1000 (4.8-10.8)
[2019-09-01 09:14] LABS: AGAP 11; ALKALINE PHOSPHATASE 928 U/L (32-104); BUN 4 mg/dL (8-22); CALCIUM 8.7 mg/dL (8.8-10.2); CHLORIDE 101 mmol/L (98-107); COSMO 271; CREATININE 0.7 mg/dL (0.5-0.9); ESTIMATED GFR > 60; GLUCOSE 96 mg/dL (70-104); GOT 301 U/L (10-30); GPT 463 U/L (10-36); SODIUM 137 mmol/L (136-145); TCO2 25 mmol/L (25-35); TOTAL BILIRUBIN 1.09 mg/dL (0.20-1.00); TOTAL PROTEIN 5.9 g/dL (6.3-8.3)
--- NOTE | 2019-09-01 09:27 | Diag Imaging Result Doc PS360 ---
EXAM: CHEST-2 VIEWS HISTORY: basilar lung infiltrates TECHNIQUE: Two views COMPARISON: 08/30/2019 FINDINGS: The lungs are hyperexpanded. The vessels are small. No cardiomegaly. No change in the right jugular portacatheter. No pneumothorax. Mild increased markings in the lower lungs. These are less prominent than on the prior study. No consolidation. IMPRESSION: Mild improvement Electronically signed by Memo Sen 09/01/2019 9:25 AM
[2019-09-01] MEDS: MIRALAX PO SCH (09:39)
[2019-09-01 10:19] LABS: EOS 4 % (1-10); LYMPHS 16 % (21-51); MONO 20 % (1-9); SEGS 56 % (42-75)
--- NOTE | 2019-09-01 14:29 | HEMO/ONC PROGRESS NOTE ---
DATE: 09/01/2019 SUBJECTIVE: Patient states she is not feeling better today than she did yesterday and her pain has worsened. She states starting last night her pain moved to her back. Her nausea has remained and she continues to have diarrhea. The patient was seen by Dr. Brar and his nurse practitioner yesterday. They do believe she has ascending cholangitis. She has no other complaints today. No significant events occurred overnight. OBJECTIVE: Vital Signs: Temperature 98.1 degrees, pulse rate 59, respiratory rate 20, blood pressure 172/70, O2 saturation 98% on room air. She is in 0/10 pain. PHYSICAL EXAMINATION: General: The patient is in no acute distress, lying comfortably in her bed. Cardiovascular: Normal S1, S2. Heart rate and rhythm regular. Respiratory: Lung sounds are clear to auscultation. Abdomen: Soft, nondistended. She has got very mild tenderness to the epigastric area and hypoactive bowel sounds. Neurological: Alert and oriented x3. No focal motor deficits. LABORATORY: WBCs 3.58, hemoglobin 9.5, hematocrit 30.4, platelet count 242,000. ANC 1.9, creatinine 0.7. Total bilirubin 1.09, AST 301, ALT 463, alkaline phosphatase 928. ASSESSMENT AND PLAN: 1. Stage IV pancreatic cancer with liver metastasis, currently under treatment with Gemzar and Abraxane last treatment 08/20/2018. Her treatment will remain on hold while we treat her current illness. 2. Ascending cholangitis. Continue to treat the patient's pain. Continue antibiotics and management per medical staff. 3. Elevated liver enzymes. Continue to monitor. 4. Nausea. The patient continues to complain of nausea. Continue to medicate her around the clock as needed. 5. Constipation. Continue with MiraLAX following recommendations per GI. Dictated by DIMITRIS Ballard for Arpan Gunter MD As above. Discussed with Dr. Peck. Patients symptoms are improving. She is OK for discharge from my standpoint with antibiotic, MSIR and zofran. We will skip her chemo this week. Arpan Gunter MD cc: MD Nir Hernández MD [facility]
[2019-09-01 15:49] VITALS: BP 186/72
[2019-09-01] MEDS ORDERED: AVAPRO PO SCH (16:45)
--- NOTE | 2019-09-01 19:47 | GASTROENTEROLOGY PROGRESS NOTE ---
DATE: 09/01/2019 SUBJECTIVE: Patient is awake and alert. She has been up in the room back and forth to the bathroom. Her main complaint today is back pain. She has had some nausea. She did tolerate the clear liquid diet yesterday. She reports abdominal tenderness but her abdominal pain has improved. Lipase was 61 today. OBJECTIVE: Vital Signs: Temperature 98.1 degrees, pulse 59, respirations 20, blood pressure 172/70. General: Patient is awake and alert, no acute distress. Respiratory: Lung sounds essentially clear. She has a port to the right chest. Abdomen: Soft. Mild tenderness with palpation otherwise positive bowel sounds. LABORATORY: Hematology. WBC 3.58, hemoglobin 9.5, hematocrit 30.4, MCV 99.3, platelet 242,000. Chemistry. Sodium 137, potassium 4.0, chloride 101, CO2 25, BUN 4, creatinine 0.7, glucose 96, total bilirubin 1.09, AST 301, ALT 463, alkaline phosphatase 928, lipase 61. ASSESSMENT AND PLAN: 1. Pancreatic cancer with metastasis to the liver. Continue current recommendations per Dr. Gunter. She had a scheduled chemotherapy treatment for that has been placed on hold until she is out of the hospital. 2. Elevated liver function tests. We will continue to follow. 3. Ascending cholangitis. Continue antibiotics. 4. Recent ERCP with metal stent placed on 08/26/2019. 5. Nausea, improving. 6. Abdominal pain, improved. 7. Constipation. Continue current laxative. 8. We added Reglan before meals yesterday. We will wait on adding her Creon back until she is taking solid foods. We will advance her diet to a full liquid diet today if she tolerates it and will continue to follow and further plans will be made according to her progress. I have discussed this case with Dr. Brar. Dictated by DIMITRIS Harvey for Nehemias Barr MD cc: DIMITRIS Hargrove MD Jagan Reddy, MD
--- NOTE | 2019-09-01 20:49 | PROGRESS NOTE ---
DATE: 09/01/2019 SUBJECTIVE: The patient has had some discomfort in her back, but overall has had a reasonably good day today. She has had no major nausea. No vomiting. She has been able to eat a full liquid diet for lunch and supper without great difficulty. OBJECTIVE: Vital signs: Afebrile, pulse 60, respirations 20, blood pressure 186/72, O2 saturation room air 97%. CV: RRR without murmur. Lungs: CTA. Abdomen: No major tenderness. Active bowel sounds. Nondistention. She has been stooling. Extremities: No calf tenderness, cords, or edema. Neurologic: Cranial nerves 2 through 12 are intact. No focal deficits. LABORATORY DATA: Sodium 137, potassium 4.0, chloride 101, CO2 25, BUN 4, creatinine 0.7, glucose 96, calcium 8.7, total bilirubin 1.09, AST 301, ALT 463, alkaline phosphatase 928, total protein 5.9, albumin 3.0, lipase down from 196 to 61. White count 3.58, hemoglobin 9.5, platelets 242,000. IMAGING: Chest x-ray shows no consolidation, mild increased markings in the lower lung mckinney. Vessels are small. No cardiomegaly. Lungs are hyperexpanded. Port-A-Cath without abnormality. ASSESSMENT: 1. Metastatic pancreatic cancer with metastasis to the liver, with liver metastases improved on CT scan. 2. Status post endoscopic retrograde cholangiopancreatography with common bile duct metal stent placed nearly a week ago. 3. Ascending cholangitis. 4. Mild pancreatitis, resolving. 5. Hypokalemia, resolved with repletion. 6. Dehydration, resolved. 7. Malnutrition. 8. Hypertension. PLAN: I spoke with Dr. Gunter in great detail. The patient has seen some improvement. We will hold her chemotherapy for a week and Dr. Gunter plans to reassess her at that point. In the interim, he recommends discharge home on Levaquin, and we will give her morphine sulfate immediate release, half a tablet every 4 to 6 hours p.r.n. pain, and she will resume her Creon and Zofran, Phenergan, and Raglan to help combat the nausea. She will resume her Avapro at home, and she will take MiraLAX once a day, and she will follow up with me as needed and with Dr. Gunter in 1 week. She knows she may come back to the emergency room if she worsens in any way in the interim. She will increase to a soft diet as tolerated tomorrow morning. cc: MD Nir Carnes MD
[2019-09-01] MEDS ORDERED: CELEXA PO SCH (21:00)
--- NOTE | 2019-09-13 16:29 | DISCHARGE SUMMARY ---
ADMISSION DATE: 08/29/2019 DISCHARGE DATE: 09/01/2019 DIAGNOSES: 1. Metastatic pancreatic cancer with metastasis to the liver. 2. Ascending cholangitis. 3. Status post ERCP with common bile duct metal stent placed about a week ago outpatient. 4. Mild pancreatitis, resolving. 5. Hypokalemia, resolved with repletion. 6. Dehydration, resolved. 7. Malnutrition. 8. Hypertension. 9. Left pneumonia. PROCEDURES: 1. CT abdomen and pelvis done 08/29/2019 revealing no enlargement of the pancreatic mass although the pancreatic duct is dilated on the current exam. There is interval decrease in size and the hepatic mass is distended. Duodenum similar to the prior exam. Constipation. Trace fluid in the pelvis on the current exam. 2. Flat and upright of the abdomen revealing constipation. 3. Chest x-ray again done 08/30/2019 revealing bibasilar bronchopneumonia, particularly on the left lower lobe. 4. Chest x-ray again repeated on 05/01, mild improvement bronchopneumonia. CONSULTANTS: 1. Dr. Gunter, hematology/oncology. 2. Dr. Luisito Greco, gastroenterology. REASON FOR ADMISSION AND HOSPITAL COURSE: The patient is a 73-year-old white female followed in my medical practice. She has a history of pancreatic cancer with metastasis to the liver and is followed by Dr. Gunter. She is on chemotherapy per him. She has been having trouble with nausea and vomiting and she underwent ERCP with placement of metal stent about a week prior to coming into the hospital. This was done outpatient. The patient came in with worsening nausea, vomiting, dehydration, low potassium. She was hydrated and potassium was repleted. She was treated with IV antibiotics and she was controlled with her pain with narcotics at relatively low level. MiraLAX and Relistor was given to improve side effects of constipation related to the narcotics. Dr. Greco saw the patient in consultation and then Dr. Gregory took over for gastroenterology. Reglan was added by Dr. Brar and Creon was continued when she took in any solid foods. Slowly toward the end of the hospitalization, she was able to be advanced from clear liquids to full liquids. She was able to tolerate that fairly well. Dr. Gunter held her Gemzar and Abraxane and her last chemotherapy treatment was on 08/20/2018. The patient improved to the point that she could be discharged home on 09/01/2019. DISCHARGE MEDICATION: Sheets were Levaquin 750 mg p.o. daily, MiraLAX 17 g in 8 ounces of water daily, morphine IR 15 mg half a tablet q. 4-6 hours p.r.n. pain, Zyrtec 10 mg p.o. at bedtime, Pepcid 40 mg p.o. at bedtime, Reglan 10 mg p.o. t.i.d. with meals, multivitamin 1 p.o. daily, Protonix 40 mg p.o. b.i.d., zinc 50 mg p.o. b.i.d., biotin 5000 mcg p.o. q.a.m., Celexa 20 mg p.o. at bedtime, Restoril 15 mg p.o. at bedtime, Caltrate plus D 1 p.o. b.i.d., Creon 82434 units 2 p.o. t.i.d. with meals, Imodium p.r.n. diarrhea, Zofran 1 to 2 p.o. q. 4-6 hours p.r.n. nausea or vomiting, or Phenergan 25 mg p.o. q. 4-6 hours p.r.n. nausea or vomiting. Vitamin B complex 1 p.o. daily, Avapro 150 mg p.o. daily please send copies discharged sometime office. LABS: Showed white count 3.5 to 6 during the hospitalization with hemoglobin stable at 9.5, and platelets normal in the mid 100s to low 200s. Initially potassium was low on admission at 3.2, but with repletion that came up by discharge to 4.0, BUN initially 16 with a creatinine of 0.6, was 4 and 0.7 at discharge. LFTs were elevated during the hospitalization. Amylase normal at 61. Lipase initially was 196, defervesced to 61. cc: MD Nir Carnes MD
== END 2019-09-01 18:30 | disposition home or self-care (01) | DRG 438 ==
LOC: P.ED 15:22 → 3N 20:27
PROVIDERS: ADMIT Internal Medicine; ATTEND Family Medicine